=== PATIENT | male | born 1945 | race Caucasian/White ===

== ENCOUNTER 2017-05-28 10:49 | Inpatient (IN) | payer MEDICARE, OTHER ==
[~2017-05-28] VITALS: Ht 172.7 cm; Wt 92.9 kg
[2017-05-28 11:45] LABS: Basophils # (auto) 0 uL; Eosinophils # (auto) 0 uL; Eosinophils % (auto) 0.2 % (0.0-7.0); Monocytes # (auto) 0.7 uL; Neutrophils # (auto) 8.2 uL
[2017-05-28 11:49] LABS: Basophils % (auto) 0.1 % (0.0-2.0); Hematocrit 40.2 % (41.0-53.0); Hemoglobin 13.9 g/dL (13.5-17.5); Lymphocytes % (auto) 9.8 % (10.0-50.0); Mean Corpuscular Hemoglobin 34.8 pg (28.0-32.0); Mean Corpuscular Hgb Conc. 34.7 g/dL (32.0-36.0); Mean Corpuscular Volume 100.5 fL (80.0-100.0); Neutrophils % (auto) 82.9 % (37.0-80.0); Nucleated Red Blood Cells % 0.1 %; Platelet Count (auto) 210 10^3/uL (140-450); Red Cell Distribution Width 12.9 % (11.8-14.3); White Blood Cell 9.9 10^3/uL (4.4-10.8)
[2017-05-28] MEDS ORDERED: SODIUM CHLORIDE 0.9% 1,000 ML IVB ONE (12:08)
[2017-05-28 12:10] LABS: Albumin 4.3 g/dL (3.4-5.0); BUN/Creatinine Ratio 10.3; Bilirubin, Total 0.6 mg/dL (0.2-1.0); Potassium 4.1 mmol/L (3.5-5.1); Total Protein 7.8 g/dL (6.4-8.2)
[2017-05-28] MEDS ORDERED: MORPHINE SULFATE 4 MG/ML SYR/VIAL IV ONE (12:15)
[2017-05-28] MEDS ORDERED: ONDANSETRON HCL 4 MG/2 ML VIAL IV ONE (12:15)
[2017-05-28 12:28] LABS: Amylase 60 U/L (25-115); Lipase 114 U/L (73-393); Magnesium 2.2 mg/dL (1.6-2.6)
[2017-05-28 12:43] LABS: INR 1.02 (0.9-1.15); Partial Thromboplastin Time 24.9 sec (22.64-33.71); Prothrombin Time 11.1 sec (9.37-12.3)
[2017-05-28 13:08] LABS: Urine Bacteria NONE SEEN /hpf (None Seen); Urine Blood Negative /uL (Negative); Urine Specific Gravity 1.022 (1.001-1.035); Urine WBC <1 /hpf (0 - 3)
[2017-05-28] MEDS ORDERED: NITROGLYCERIN 0.4 MG SL TAB SL PRN (14:45)
[2017-05-28] MEDS ORDERED: FAMOTIDINE (10MG/ML) 2ML VL IV SCH (14:45)
[2017-05-28] MEDS ORDERED: TAMSULOSIN HYDROCHLORIDE 0.4 MG CAP PO ONE ×2 (14:45→20:45)
[2017-05-28] MEDS ORDERED: ACETAMINOPHEN 500 MG TAB PO PRN (14:45)
[2017-05-28] MEDS ORDERED: KETOROLAC TROMETH 30 MG/ML 1ML VIAL IV ONE (14:45)
[2017-05-28] MEDS ORDERED: LORazepam 0.5 MG TAB PO PRN (14:45)
[2017-05-28] MEDS ORDERED: MORPHINE SULFATE 4 MG/ML SYR/VIAL IV PRN (14:45)
[2017-05-28] MEDS ORDERED: cefTRIAXone 1GM/10ml IVPUSH 10 ML IV ONE (14:45)
[2017-05-28] MEDS: SODIUM CHLORIDE 0.9% 1,000 ML IV SCH ×2 (14:49→19:22)
[2017-05-28] MEDS ORDERED: FAMOTIDINE 20 MG TAB PO SCH (15:00)
[2017-05-28 20:15] VITALS: BP 148/77
[2017-05-28] MEDS ORDERED: MANNITOL 20 % (20GM/100ML) 62.5 ML IV ONE (20:30)
[2017-05-28 21:57] VITALS: BP 148/77
[2017-05-28] MEDS: TEMAZEPAM 15 MG CAP PO PRN (21:57)
[2017-05-28] MEDS: MORPHINE SULFATE 4 MG/ML SYR/VIAL IV PRN (21:57)
[2017-05-28] MEDS: HYDROcodone-ACET 5/325MG TAB PO PRN (21:57)
[2017-05-28 22:15] VITALS: BP 148/77
[2017-05-28] MEDS: PROMETHAZINE HCL 25 MG/ML 1ML IV PRN (23:09)
[2017-05-29] MEDS ORDERED: NIAC500T71 PO (02:23)
[2017-05-29] MEDS ORDERED: ASPI325T4 PO (02:23)
[2017-05-29] MEDS ORDERED: MELO1TAB56 PO (02:23)
[2017-05-29] MEDS ORDERED: LANS30CA63 PO (02:23)
[2017-05-29] MEDS ORDERED: TEMA30CA PO (02:23)
[2017-05-29] MEDS ORDERED: ASCO500T11 GT (02:23)
[2017-05-29] MEDS ORDERED: SIMV80TA73 PO (02:23)
[2017-05-29] MEDS ORDERED: CHOL20007 OR (02:23)
[2017-05-29] MEDS ORDERED: LOSA25TA9 PO (02:23)
[2017-05-29] MEDS ORDERED: METO25TA5 PO (02:23)
[2017-05-29 04:57] VITALS: BP 130/73
[2017-05-29 07:34] LABS: Albumin 3.7 g/dL (3.4-5.0); BUN/Creatinine Ratio 10.9; Bilirubin, Total 0.6 mg/dL (0.2-1.0); Potassium 3.7 mmol/L (3.5-5.1); Total Protein 7.1 g/dL (6.4-8.2)
[2017-05-29 09:00] VITALS: BP 142/72
[2017-05-29] MEDS: cefTRIAXone 1GM/10ml IVPUSH 10 ML IV SCH (09:45)
[2017-05-29 13:00] VITALS: BP 156/74
[2017-05-29] MEDS: SODIUM CHLORIDE 0.9% 1,000 ML IV SCH (13:00)
[2017-05-29] MEDS: HYDROcodone-ACET 5/325MG TAB PO PRN (16:19)
[2017-05-29 16:41] VITALS: BP 148/73
[2017-05-29] MEDS: MORPHINE SULFATE 4 MG/ML SYR/VIAL IV PRN ×2 (17:08→23:48)
[2017-05-29] MEDS: TAMSULOSIN HYDROCHLORIDE 0.4 MG CAP PO SCH (18:35)
[2017-05-29 23:06] VITALS: BP 124/75
[2017-05-30] MEDS: HYDROcodone-ACET 5/325MG TAB PO PRN ×2 (00:40→06:19)
[2017-05-30] MEDS ORDERED: MEPERIDINE HCL (25 MG/ML) 1ML VIAL IV ONE (01:00)
[2017-05-30] MEDS: PROMETHAZINE HCL 25 MG/ML 1ML IV PRN ×4 (01:08→17:04)
[2017-05-30 05:14] VITALS: BP 151/87
[2017-05-30] MEDS: MEPERIDINE HCL (25 MG/ML) 1ML VIAL IV PRN ×2 (05:32→09:35)
[2017-05-30] MEDS: SODIUM CHLORIDE 0.9% 1,000 ML IV SCH ×2 (06:18→22:00)
[2017-05-30 07:49] LABS: BUN/Creatinine Ratio 10.2; Calcium 8.5 mg/dL (8.5-10.1); Potassium 3.7 mmol/L (3.5-5.1)
[2017-05-30 08:59] VITALS: BP 183/88
[2017-05-30] MEDS: cefTRIAXone 1GM/10ml IVPUSH 10 ML IV SCH (09:35)
[2017-05-30] MEDS ORDERED: OXYCODONE W/ ACETAMINOPHEN 5/325MG TABLET PO PRN (10:45)
[2017-05-30] MEDS ORDERED: MANNITOL 20 % (20GM/100ML) 62.5 ML IV ONE (11:00)
[2017-05-30 11:25] LABS: Basophils # (auto) 0 uL; Eosinophils # (auto) 0 uL; Hemoglobin 13.8 g/dL (13.5-17.5); Monocytes # (auto) 0.9 uL; Red Blood Cells 3.96 10^6/uL (4.5-5.90)
[2017-05-30 11:27] LABS: Lymphocytes % (auto) 5.9 % (10.0-50.0); Neutrophils % (auto) 86.2 % (37.0-80.0); White Blood Cell 11.4 10^3/uL (4.4-10.8)
[2017-05-30 11:28] LABS: Basophils % (auto) 0.1 % (0.0-2.0); Eosinophils % (auto) 0.1 % (0.0-7.0); Hematocrit 40.8 % (41.0-53.0); Lymphocytes # (auto) 0.7 uL; Mean Corpuscular Volume 102.9 fL (80.0-100.0); Monocytes % (auto) 7.7 % (0.0-12.0); Neutrophils # (auto) 9.8 uL; Nucleated Red Blood Cells % 0.1 %; Platelet Count (auto) 177 10^3/uL (140-450); Red Cell Distribution Width 12.9 % (11.8-14.3)
[2017-05-30 11:38] LABS: INR 1.01 (0.9-1.15); Partial Thromboplastin Time 25.3 sec (22.64-33.71)
[2017-05-30 11:42] LABS: BUN/Creatinine Ratio 9.1; Calcium 8.6 mg/dL (8.5-10.1); Potassium 3.6 mmol/L (3.5-5.1)
[2017-05-30 13:00] VITALS: BP 154/91
[2017-05-30] MEDS: MEPERIDINE HCL (50 MG/ML) 1 ML VIAL IV PRN (17:03)
[2017-05-30 17:32] VITALS: BP 181/83
[2017-05-30] MEDS: TAMSULOSIN HYDROCHLORIDE 0.4 MG CAP PO SCH (18:00)
[2017-05-30] MEDS ORDERED: ceFAZolin 1GM/50ML 50 ML IV ONE (18:18)
[2017-05-30] MEDS ORDERED: MIDAZOLAM HCL 1MG/1ML-2 ML VIAL ONE (18:24)
[2017-05-30] MEDS ORDERED: fentaNYL CITRATE 100 MCG/2 ML VL ONE (18:24)
[2017-05-30] MEDS ORDERED: MEPERIDINE HCL (50 MG/ML) 1 ML VIAL ONE (18:24)
[2017-05-30] MEDS ORDERED: DEXAMETHASONE SOD PHOS 10MG/1ML VIAL INJ ONE (18:36)
[2017-05-30] MEDS ORDERED: PROPOFOL 10 MG/ML 20 ML IV ONE (19:09)
[2017-05-30] MEDS ORDERED: ONDANSETRON HCL 4 MG/2 ML VIAL IV ONE (19:15)
[2017-05-30] MEDS ORDERED: hydrALAZINE HCL 20 MG/ML VL IV PRN (19:15)
[2017-05-30] MEDS ORDERED: LABETALOL HCL 5 MG/ML 4ML SYRINGE IV PRN (19:15)
[2017-05-30] MEDS ORDERED: KETOROLAC TROMETH 30 MG/ML 1ML VIAL IV ONE (19:15)
[2017-05-30] MEDS ORDERED: MIDAZOLAM HCL 1MG/1ML-2 ML VIAL IV PRN (19:15)
[2017-05-30] MEDS ORDERED: ePHEDrine SULFATE 50 MG/ML AMP IV PRN (19:15)
[2017-05-30] MEDS ORDERED: fentaNYL CITRATE 100 MCG/2 ML VL IV ONE ×2 (20:00→21:15)
[2017-05-30 21:21] VITALS: BP 147/76
[2017-05-31 05:29] VITALS: BP 154/78
[2017-05-31] MEDS: cefTRIAXone 1GM/10ml IVPUSH 10 ML IV SCH (08:49)
[2017-05-31 09:16] VITALS: BP 167/81
[2017-05-31] MEDS: PROMETHAZINE HCL 25 MG/ML 1ML IV PRN ×2 (12:19→16:48)
[2017-05-31] MEDS: MEPERIDINE HCL (50 MG/ML) 1 ML VIAL IV PRN ×3 (12:19→23:38)
[2017-05-31] MEDS ORDERED: NIFEdipine ER 30 MG TAB PO ONE (12:30)
[2017-05-31 13:00] VITALS: BP 209/104
[2017-05-31] MEDS: SODIUM CHLORIDE 0.9% 1,000 ML IV SCH (13:09)
[2017-05-31 13:32] VITALS: BP 154/72
[2017-05-31 17:04] VITALS: BP 140/73
[2017-05-31] MEDS: TAMSULOSIN HYDROCHLORIDE 0.4 MG CAP PO SCH (17:34)
[2017-05-31] MEDS: NIFEdipine ER 30 MG TAB PO SCH (21:38)
[2017-05-31 22:00] VITALS: BP 140/69
[2017-05-31] MEDS: TEMAZEPAM 15 MG CAP PO PRN (23:39)
[2017-06-01] MEDS: MEPERIDINE HCL (50 MG/ML) 1 ML VIAL IV PRN ×3 (03:17→15:21)
[2017-06-01 04:49] VITALS: BP 128/68
[2017-06-01] MEDS: SODIUM CHLORIDE 0.9% 1,000 ML IV SCH (08:23)
[2017-06-01] MEDS: cefTRIAXone 1GM/10ml IVPUSH 10 ML IV SCH (08:23)
[2017-06-01] MEDS: HYDROcodone-ACET 5/325MG TAB PO PRN ×2 (08:23→17:17)
[2017-06-01] MEDS: NIFEdipine ER 30 MG TAB PO SCH ×2 (09:26→22:00)
[2017-06-01 09:44] VITALS: BP 133/71
[2017-06-01 13:00] LABS: Basophils # (auto) 0 uL; Eosinophils # (auto) 0.1 uL; Eosinophils % (auto) 0.9 % (0.0-7.0)
[2017-06-01 13:01] LABS: Calcium 8.3 mg/dL (8.5-10.1); Potassium 3.8 mmol/L (3.5-5.1)
[2017-06-01 13:04] LABS: Basophils % (auto) 0.3 % (0.0-2.0); Hematocrit 39.1 % (41.0-53.0); Hemoglobin 13.3 g/dL (13.5-17.5); Lymphocytes # (auto) 1.3 uL; Lymphocytes % (auto) 14.9 % (10.0-50.0); Mean Corpuscular Hemoglobin 34.5 pg (28.0-32.0); Mean Corpuscular Volume 101.6 fL (80.0-100.0); Monocytes % (auto) 11.4 % (0.0-12.0); Neutrophils # (auto) 6.3 uL; Neutrophils % (auto) 72.5 % (37.0-80.0); Platelet Count (auto) 194 10^3/uL (140-450); Red Blood Cells 3.85 10^6/uL (4.5-5.90); Red Cell Distribution Width 13.3 % (11.8-14.3); White Blood Cell 8.6 10^3/uL (4.4-10.8)
[2017-06-01] MEDS ORDERED: SUCRALFATE 1 GM/10 ML ORAL SUSP GT ONE (13:30)
[2017-06-01] MEDS ORDERED: PANTOPRAZOLE 40 MG TAB PO ONE (13:30)
[2017-06-01 14:07] VITALS: BP 150/72
[2017-06-01] MEDS: PROMETHAZINE HCL 25 MG/ML 1ML IV PRN (15:21)
[2017-06-01] MEDS: SUCRALFATE 1 GM/10 ML ORAL SUSP PO SCH ×2 (17:17→22:00)
[2017-06-01 17:31] VITALS: BP 144/71
[2017-06-01] MEDS: TAMSULOSIN HYDROCHLORIDE 0.4 MG CAP PO SCH (18:01)
[2017-06-01] MEDS: PANTOPRAZOLE 40 MG TAB PO SCH (22:00)
[2017-06-01 22:37] VITALS: BP 157/79
[2017-06-01] MEDS: TEMAZEPAM 15 MG CAP PO PRN (23:59)
[2017-06-02] MEDS: SODIUM CHLORIDE 0.9% 1,000 ML IV SCH (00:20)
[2017-06-02 05:39] VITALS: BP 146/45
[2017-06-02 08:39] VITALS: BP 143/76
[2017-06-02] MEDS: SUCRALFATE 1 GM/10 ML ORAL SUSP PO SCH (08:40)
[2017-06-02] MEDS: cefTRIAXone 1GM/10ml IVPUSH 10 ML IV SCH (10:07)
[2017-06-02] MEDS: PANTOPRAZOLE 40 MG TAB PO SCH (10:07)
[2017-06-02] MEDS: NIFEdipine ER 30 MG TAB PO SCH (10:09)
== END 2017-06-02 13:10 | disposition home or self-care (01) | DRG 694 ==
LOC: ER 10:49 → EDBD 10:49 → TELE 10:50 → TELE-EAST 17:49
PROVIDERS: ADMIT Internal Medicine; ATTEND Specialist
PROC: 0T768DZ Dilation of Right Ureter with Intraluminal Device, Via Natural or Artificial Opening Endoscopic (ICD-10-PCS; principal; 2017-05-30 18:05)
DX: N13.2 Hydronephrosis with renal and ureteral calculous obstruction (principal); N17.1 Acute kidney failure with acute cortical necrosis; I13.0 Hypertensive heart and chronic kidney disease with heart failure and stage 1 through stage 4 chronic kidney disease, or unspecified chronic kidney disease; I50.32 Chronic diastolic (congestive) heart failure; G62.9 Polyneuropathy, unspecified; E78.5 Hyperlipidemia, unspecified; I25.10 Atherosclerotic heart disease of native coronary artery without angina pectoris; I70.8 Atherosclerosis of other arteries; K57.30 Diverticulosis of large intestine without perforation or abscess without bleeding; N18.3 Chronic kidney disease, stage 3 (moderate); M54.30 Sciatica, unspecified side; E66.9 Obesity, unspecified; Z82.49 Family history of ischemic heart disease and other diseases of the circulatory system; Z87.442 Personal history of urinary calculi; Z87.891 Personal history of nicotine dependence; Z95.1 Presence of aortocoronary bypass graft; Z68.31 Body mass index [BMI] 31.0-31.9, adult
CPT/HCPCS: 36415; 71045; 74018; 74176; 76000; 80048; 80053; 81001; 82150; 83690; 83735; 84484; 85025; 85610; 85730; 87086; 93005; 94761; 96361; 96374; 96375; J0690; J1100; J1885; J2250; J2405; J2704